=== PATIENT | male | born 1950 | race Caucasian/White ===

== ENCOUNTER 2017-04-15 10:24 | Emergency (ER) | payer MEDICARE, BC ==
[~2017-04-15] VITALS: Ht 5787.1 cm; Wt 92.0 kg
[~2017-04-15 10:24] MED LIST: LISI-222 PO; ZOF4T PO
[2017-04-15] MEDS ORDERED: acetaminophen 325mg tablet PO ONE (12:40)
[2017-04-15 13:34] VITALS: BP 118/78
== END 2017-04-15 13:35 | disposition home or self-care (01) ==
LOC: ER 10:25
DX: R07.81 Pleurodynia (principal); N40.0 Benign prostatic hyperplasia without lower urinary tract symptoms; I10 Essential (primary) hypertension; W20.8XXA Other cause of strike by thrown, projected or falling object, initial encounter; Y93.89 Activity, other specified; Y92.89 Other specified places as the place of occurrence of the external cause; Y99.8 Other external cause status
CPT/HCPCS: 71045; 99283